=== PATIENT | male | born 1970 | race Caucasian/White ===

== ENCOUNTER 2018-03-31 14:30 | Emergency (ER) | payer MEDICAID ==
[~2018-03-31] VITALS: Ht 179.1 cm; Wt 88.7 kg
[~2018-03-31 14:30] MED LIST: NO HOME MEDS; ONDA8TAB9 PO
[2018-03-31 15:02] VITALS: BP 145/88
== END 2018-03-31 15:48 | disposition home or self-care (01) ==
LOC: ER 14:31
DX: R07.89 Other chest pain (principal); R07.81 Pleurodynia; R05 Cough; Z98.890 Other specified postprocedural states; Z88.5 Allergy status to narcotic agent; Z79.899 Other long term (current) drug therapy
CPT/HCPCS: 99281

== ENCOUNTER 2025-02-16 17:51 | Emergency (ER) | payer MEDICAID ==
[~2025-02-16] VITALS: Ht 177.8 cm; Wt 100.0 kg
[2025-02-16] MEDS: acetaminophen 325mg tablet PO ONE (18:58)
[2025-02-16] MEDS: naproxen 500mg tablet PO ONE (18:59)
--- NOTE | 2025-02-16 19:34 | RADIOLOGY REPORT ---
EXAMINATIONS: 3 views of the right ankle 3 views of the right foot CLINICAL HISTORY: ANKLE and foot PAIN COMPARISON: None Findings and impression: No grossly displaced fractures, dislocations or bony destructive changes are evident on the provided views. The ankle mortise appears intact. No sizable, radiopaque foreign bodies noted. If symptoms persist, follow-up MRI may be considered to further evaluate.
--- NOTE | 2025-02-16 20:04 | Physician Documentation ---
History of Present Illness ~ Chief Complaint: Leg Pain Stated Complaint: R FOOT PAIN Time Seen by MD: 18:10 OK to notify your PCP?: Yes Primary Medical Doctor: none Source: patient Mode of Arrival: POV Exam Limitations: no limitations HPI 54-year-old male presents with right ankle and foot pain after stepping on a stick which subsequently caused him to get his leg wedged between 2 logs. He is complaining of ankle pain with limited range of motion, good CSM and neurovascular intact. Tetanus witin 5 years: Yes (2019) Medication Reconciliation Allergies: Coded Allergies: codeine (Verified Allergy, Severe, 02/16/25) Scheduled PRN Ondansetron (Zofran Odt), 8 MG PO TID PRN PRN for nausea/vomiting Miscellaneous Medications Home Med List (No Home Medications), (Reported) Past Medical History Past Medical History: No Pertinent History Past Surgical History: orthopedic surgeries Alcohol Use: Occasionally Drug Use: none Lives In: Home Review of Systems All Other Systems at this time: Reviewed and Negative Physical Exam Vital Signs: RN Vital Signs have been reviewed: Yes, Temperature: 97.5, Source: Temporal, Heart Rate: 97, Respiratory Rate: 16, BP: 123/75, Pulse Oximetry: 97, Weight: 100.000 Oxygen Flow Rate: 0 Pulse Oximetry Reflects: adequate oxygenation Physical Exam General: Alert, no apparent distress. HEENT: PERRL, EOMI, no injection, moist mucous membranes. Neck: Full range of motion. Respiratory: Lungs clear, no respiratory distress. Chest: No accessory muscle use. Cardiovascular: Regular rate and rhythm, no murmurs. Gastrointestinal: Soft, nontender, nondistended. Bowels sounds present. Extremities: Full range of motion of right ankle due to pain, tenderness to palpation of lateral aspect of right ankle and foot. Good CSM. Good range motion of toes. Sensation intact. Neurologic: Oriented x4. Psychiatric: Normal mood and affect. Skin: Normal color, warm and dry. No edema, no ecchymosis. Progress Results/Orders Reviewed/noted all lab results: Yes Results/Orders Orders - LOIS SAAVEDRA Ankle, Complete(3vw Min) (02/16/25 18:32) Foot, Complete (3vw Min) (02/16/25 18:32) Completed Orders - FREDERIC,LOIS D [employer]IOR SAL[employer] COMPENSATION ANALYST Acetaminophen 325mg Tablet (Tylenol Tabl (02/16/25 18:35) Naproxen Tablet (Naprosyn Tablet) (02/16/25 18:35) Ankle, Complete(3vw Min) (02/16/25 18:32) Foot, Complete (3vw Min) (02/16/25 18:32) Medications Received in ER Medications (Trade) Dose Ordered Sig/Sherley Route PRN Reason Start Time Stop Time Status Last Admin Dose Admin (Tylenol tablet) 650 mg ONCE ONCE PO 02/16/25 18:35 02/16/25 18:40 DC 02/16/25 18:58 650 MG (Naprosyn tablet) 500 mg ONCE ONCE PO 02/16/25 18:35 02/16/25 18:40 DC 02/16/25 18:59 500 MG Vital Signs 02/16/25 17:54 Temp 97.5 Pulse 97 Resp 16 B/P (MAP) 123/75 Pulse Ox 97 O2 Flow Rate 0 EKG/XRAY/CT/US/VASC/MRI Bone/Soft Tissue X-Ray (Ext.) : Additional Comment Right foot and ankle x-ray as interpreted by me; no joint effusion, no acute fracture, no soft tissue swelling, no dislocation, or foreign body. Medical Decision Making Findings 54-year-old male presents with right ankle and foot pain after stepping on a stick and rolling his ankle and between 2 logs. His physical exam shows some tenderness to palpation and some limited range motion due to pain. His x-rays are negative for an acute fracture. We discussed the limitations of x-ray, that sometimes an acute fracture is not seen immediately but maybe seen on a repeat x-ray 7-10 days later. You will give him a lace-up ankle splint to provide a little extra support. Administered Tylenol and naproxen in the department. Sh ould continue to elevate, ice, wear his brace and take Tylenol and/or ibuprofen for pain relief. Should follow up with his primary care provider in the next 3 days and return back here for any new or worsening symptoms. General Diff Dx:Considerations: Include: Contusion, Fracture, Malunion, Neurovascular injury, Open fracture, Sprain Departure Disposition: 01 HOME / SELF CARE / HOMELESS Impression: Primary Impression: Lower extremity sprain Condition: Stable Discharge Instructions: RICE Therapy for Routine Care of Injuries, [id number] Additional Instructions: Please use Tylenol and/or ibuprofen for pain relief at home few small. Please elevate, ice and rest your leg and wear your splint. With the primary care provider in the next 3 days and return back here for any new or worsening symptoms. Referrals: NO PRIMARY CARE PROVIDER (PCP) Education Educated: Patient Educated regarding: diagnosis, treatment, prognosis, need for follow up Signature Scribe Signature: . Attestation: Scribed for Lois Saavedra Cable Layer by Lois Leroy NP . 02/16/25 20:07 LOIS SAAVEDRAP Feb 16, 2025 20:04
[2025-02-16 20:25] VITALS: BP 127/63; PULSE 64; RESP 17; TEMP 97.5; O2SAT 98
== END 2025-02-16 20:24 | disposition home or self-care (01) ==
LOC: ER 17:52
DX: S93.491A Sprain of other ligament of right ankle, initial encounter (principal); Z88.5 Allergy status to narcotic agent; Z72.89 Other problems related to lifestyle; X50.1XXA Overexertion from prolonged static or awkward postures, initial encounter; Y93.89 Activity, other specified; Y92.89 Other specified places as the place of occurrence of the external cause; Y99.8 Other external cause status
CPT/HCPCS: 29515; 73610; 73630; 99284; L1930; 29125

== ENCOUNTER 2025-08-10 12:00 | Emergency (ER) | payer MEDICAID ==
[~2025-08-10] VITALS: Ht 177.8 cm; Wt 90.8 kg
[2025-08-10 12:12] VITALS: TEMP 98.5
[2025-08-10 12:39] LABS: MEAN PLATELET VOLUME 7.3 FL (7.4-10.4); RED CELL DISTRIBUTION WIDTH 12.9 % (11.5-14.5)
--- NOTE | 2025-08-10 12:46 | RADIOLOGY REPORT ---
CLINICAL HISTORY: CP TECHNIQUE: Single view of the chest was obtained. COMPARISON: None FINDINGS: The heart size and pulmonary vasculature are normal. The lungs are clear. IMPRESSION: NO ACUTE CARDIOPULMONARY PROCESS.
[2025-08-10 12:54] LABS: CREATININE 0.97 MG/DL (0.60-1.10); PRO BRAIN NATRIURETIC PEPTIDE < 30 PG/ML (0-125); TOTAL CARBON DIOXIDE 27.2 MMOL/L (24-32); eCRCL 87 ML/MIN; eGFR 80 ML/MIN
--- NOTE | 2025-08-10 12:58 | ELECTROCARDIOGRAPH REPORT ---
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 Aubrey Rodriguez Measurements Intervals Rozet Rate: 81 P: -6 MT: 143 QRS: -17 QRSD: 96 T: 35 QT: 373 QTc: 433 Interpretive Statements Sinus rhythm Left ventricular hypertrophy Baseline wander in lead(s) V1,V2,V3 Electronically Signed On 08-10-2025 18:10:[address] Aubrey Rodriguez Please click the below link to view image of tracing.
--- NOTE | 2025-08-10 14:56 | Physician Documentation ---
History of Present Illness ~ Chief Complaint: Chest Pain Stated Complaint: CHEST WALL PAIN/ BACK PAIN Time Seen by MD: 12:23 Primary Medical Doctor: none Mode of Arrival: Ambulatory HPI 55 year old male with chest pain for several weeks. Sternal, nonradiating. Reports some R arm numbness. Denies fever, cough, N/V/D. Has recent diagnosis of diabetes but has not filled his metformin prescription. Medication Reconciliation Allergies: Coded Allergies: codeine (Verified Allergy, Severe, 08/10/25) Scheduled PRN Ondansetron (Zofran Odt), 8 MG PO TID PRN PRN for nausea/vomiting Miscellaneous Medications Home Med List (No Home Medications), (Reported) Past Medical History Past Medical History: No Pertinent History Past Surgical History: orthopedic surgeries Alcohol Use: Occasionally Drug Use: none Lives In: Home Review of Systems All Other Systems at this time: Reviewed and Negative Physical Exam Vital Signs: RN Vital Signs have been reviewed: Yes, Temperature: 98.5, Source: Oral, Heart Rate: 81, Respiratory Rate: 16, BP: 168/88, Pulse Oximetry: 99, Jermaine ght: 90.800 Oxygen Flow Rate: 0 Physical Exam Gen: no distress HEENT: PERRL, EOMI Pulm: no distress CTAB CV: RRR no m/c/r Abd: deferred MSK: no deformity Skin: w/d/i Psych: unremarkable Progress Results/Orders Results/Orders Orders - WICHO LESLIE MD Chest,Single View (08/10/25 12:17) Monitor (08/10/25 12:17) Saline Lock (08/10/25 12:17) Oxygen (08/10/25 12:17) Hs Troponin I W Calculations (08/10/25 15:17) Completed Orders - WICHO LESLIE MD Chest,Single View (08/10/25 12:17) Cbc/Diff (08/10/25 12:17) BMP (08/10/25 12:17) PBNP (08/10/25 12:17) Electrocardiogram (08/10/25 12:17) Hs Troponin I W Calculations (08/10/25 12:17) Hs Troponin I W Calculations (08/10/25 14:17) Vital Signs 08/10/25 08/10/25 12:12 12:55 Temp 98.5 Pulse 81 Resp 16 B/P (MAP) 168/88 Pulse Ox 99 O2 Flow Rate 0 Laboratory Tests Test 08/10/25 12:07 08/10/25 12:26 08/10/25 14:12 Glucometer 161 H White Blood Count 7.6 Red Blood Count 5.16 Hemoglobin 16.5 Hematocrit 46.8 Mean Corpuscular Volume 90.7 Mean Corpuscular Hemoglobin 32.1 H Mean Corpuscular Hemoglobin Concent 35.3 Red Cell Distribution Width 12.9 Platelet Count 278 Mean Platelet Volume 7.3 L Neutrophils (%) (Auto) 60.7 Lymphocytes (%) (Auto) 30.2 Monocytes (%) (Auto) 7.8 Eosinophils (%) (Auto) 0.8 Basophils (%) (Auto) 0.5 Neutrophils # (Auto) 4.6 Lymphocytes # (Auto) 2.3 Monocytes # (Auto) 0.6 Eosinophils # (Auto) 0.1 Basophils # (Auto) 0.0 CBC Comment Sodium Level 134 L Potassium Level 4.3 Chloride Level 100 Carbon Dioxide Level 27.2 Anion Gap 7 L Blood Urea Nitrogen 11 Creatinine 0.97 Estimated GFR/1.73 m2 80 BUN/Creatinine Ratio 11.3 Glucose Level 156 H Calcium Level 9.3 Troponin I High Sensitivity 4 4 Pro-B-Type Natriuretic Peptide < 30 Albumin 4.1 Chemistry Comments Troponin I High Sens Percent Delta 0 Troponin I Hi Sens Absolute Change 0 Medical Decision Making Additional information obtaine: N/A Findings 55 year old male with chest pain. Initial EKG interpreted by me demonstrated NSR with no STEMI criteria and no dysrhythmia noted, CXR interpreted by me demonstrated no PTX, no PNA, normal contours. Workup including serial troponins was negative for acute findings. Observed on telemonitor and no concerning findings. Counseled to please fill his metformin prescription and follow up with PCP, return precautions. Heart Score: 2 Differential Dx:Considerations: Include: angina, chest wall pain, myocardial infarction, pericarditis, pneumonia, pneumothorax, pulmonary embolus Departure Disposition: HOME / SELF CARE / HOMELESS Impression: Primary Impression: Chest pain Condition: Stable Discharge Instructions: Nonspecific Chest Pain, Adult Referrals: NO PRIMARY CARE PROVIDER (PCP) Education Educated: Patient Educated regarding: diagnosis, treatment, prognosis, need for follow up Signature Scribe Signature: . Attestation: . WICHO LESLIE MD Aug 10, 2025 14:55
[2025-08-10 15:09] VITALS: BP 140/85; PULSE 79; RESP 14; O2SAT 97
== END 2025-08-10 15:16 | disposition home or self-care (01) ==
LOC: ER 12:01
DX: R07.9 Chest pain, unspecified (principal); E11.9 Type 2 diabetes mellitus without complications; R06.02 Shortness of breath; Z88.5 Allergy status to narcotic agent
CPT/HCPCS: 36415; 71045; 80048; 82948; 83880; 84484; 85025; 93005; 99285